=== PATIENT | male | born 1970 | race Hispanic/Latino ===

== ENCOUNTER 2018-03-15 19:14 | Emergency (ER) | payer BC ==
[2018-03-15] MEDS ORDERED: LIDOCAINE 1% W/EPI 1:100,000 MDV 50 ML VIAL ONE (20:05)
[2018-03-15] MEDS ORDERED: TETANUS & DIPHTHERIA TOX,ADULT 0.5 ML VIAL ONE (20:11)
--- NOTE | 2018-03-15 21:03 | ER ---
Nurse's Notes [facility] Name: Maulik Keith Age: 48 yrs Sex: Male : 1970 Arrival Date: 03/15/2018 Time: 19:17 Bed 17 Private MD: Diagnosis: Hand Laceration Presentation: 03/15 19:26 Presenting complaint: Patient states: He was lifting an over with metal flashing into a aj1 truck and it slipped and cut the palm of his right hand. Drsg in place in triage, bleeding controlled. Transition of care: patient was not received from another setting of care. Complicating Factors: There are no complicating factors for this patient. Onset of symptoms was March 15, 2018. Risk Assessment: Do you want to hurt yourself or someone else? Patient reports no desire to harm self or others. Initial Sepsis Screen: Does the patient meet any 2 criteria? HR > 90 bpm. No. Patient's initial sepsis screen is negative. Does the patient have a suspected source of infection? Yes: Skin breakdown/wound. 19:26 Method Of Arrival: Ambulatory aj1 19:26 Acuity: JULIANA 4 aj1 19:50 Care prior to arrival: None. ak1 Triage Assessment: 19:28 General: Appears in no apparent distress. comfortable, Behavior is calm, cooperative, aj1 appropriate for age. Pain: Complains of pain in right hand. Neuro: Level of Consciousness is awake, alert, obeys commands. Cardiovascular: Patient's skin is warm and dry. Respiratory: Airway is patent Respiratory effort is even, unlabored, Respiratory pattern is regular, symmetrical. Injury Description: Laceration sustained to right hand. Historical: - Allergies: 19:28 No Known Allergies; aj1 - Home Meds: 19:28 None [Active]; aj1 - PMHx: 19:28 None; aj1 - PSHx: 19:28 shoulder surgery; aj1 - Immunization history:: Flu vaccine is not up to date. - Social history:: Smoking status: Patient/guardian denies using tobacco. - Ebola Screening: : Patient denies travel to an Ebola-affected area in the 21 days before illness onset. Screenin:47 Abuse screen: Denies threats or abuse. Denies injuries from another. Nutritional ak1 screening: No deficits noted. Tuberculosis screening: No symptoms or risk factors identified. Fall Risk None identified. Assessment: 19:47 General: Appears in no apparent distress. Behavior is calm, cooperative. Neuro: No ak1 deficits noted. Cardiovascular: No deficits noted. Respiratory: No deficits noted. GI: No signs and/or symptoms were reported involving the gastrointestinal system. : No signs and/or symptoms were reported regarding the genitourinary system. EENT: No signs and/or symptoms were reported regarding the EENT system. Derm: laceration to right palm from metal sheet. Musculoskeletal: No signs and/or symptoms reported regarding the musculoskeletal system. Injury Description: Laceration sustained to heel of right hand, palm of right hand and Right first web space is clean, 0.5 to 2.5 cm long, bleeding moderately, is bleeding a small amount. Vital Signs: 19:28 BP 132 / 93; Pulse 91; Resp 20; Temp 98.0(TE); Pulse Ox 97% on R/A; Weight 104.33 kg aj1 (R); Height 5 ft. 9 in. (175.26 cm) (R); Pain 0/10; 19:28 Body Mass Index 33.96 (104.33 kg, 175.26 cm) [facility] ED Course: 19:17 Patient arrived in ED. do 19:28 Triage completed. aj1 19:28 Arm band placed on Patient placed in an exam room. [facility] 19:30 Christofer Segura PA is PHCP. [facility] 19:30 Erick Mayo MD is Attending Physician. [facility] 19:46 Jenni Winters, RN is Primary Nurse. [facility] 19:47 Patient has correct armband on for positive identification. Bed in low position. Call ak1 light in reach. Side rails up X 1. Pulse ox on. NIBP on. 21:05 Assist provider with laceration repair on palm of right hand using sutures. Set up ak1 tray. Patient tolerated well. Patient did not have IV access during this emergency room visit. 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 Exp: ak1 03/05/2020. Lot #: [id number]. } Route: IM; Site: left deltoid; 21:05 Follow up: Response: No adverse reaction ak1 Outcome: 21:03 Discharge ordered by . kassie 21:30 Discharged to home ambulatory, with family. ak1 21:30 Condition: good 21:30 Discharge instructions given to patient, family, Instructed on discharge instructions, follow up and referral plans. wound care, Demonstrated understanding of instructions, follow-up care, wound care. 21:33 Patient left the ED. ak1 Signatures: Alis Masters RN RN aj1 Christofer Segura PA PA jmm Krenek, Amber, RN RN ak1 Zahraa Munoz do
--- NOTE | 2018-03-15 21:03 | EDPHYS ---
Physician Documentation [facility] Name: Maulik Keith Age: 48 yrs Sex: Male : 1970 Arrival Date: 03/15/2018 Time: 19:17 Bed 17 Private MD: ED Physician Erick Mayo HPI: 03/15 19:54 This 48 yrs old Male presents to ER via Ambulatory with complaints of jmm Laceration To Hand. 19:54 The patient has a laceration related to: lifting oven. The laceration(s) is(are) jmm located on the right hand. Onset: The symptoms/episode began/occurred acutely, just prior to arrival. This is a 48/m with no chronic medical conditions that presents to the ED with a laceration to the right hand after lifting a metal oven. The hand was lacerated against a sharp portion of the oven. Denies other injury. Not UTD on tetanus immunization. . Historical: - Allergies: 19:28 No Known Allergies; aj1 - Home Meds: 19:28 None [Active]; aj1 - PMHx: 19:28 None; aj1 - PSHx: 19:28 shoulder surgery; aj1 - Immunization history:: Flu vaccine is not up to date. - Social history:: Smoking status: Patient/guardian denies using tobacco. - Ebola Screening: : Patient denies travel to an Ebola-affected area in the 21 days before illness onset. ROS: 19:54 Constitutional: Negative for fever, chills, and weight loss, Cardiovascular: Negative jmm for chest pain, palpitations, and edema, Respiratory: Negative for shortness of breath, cough, wheezing, and pleuritic chest pain. 19:54 MS/extremity: Positive for laceration. 19:54 Skin: Positive for laceration(s). 19:54 All other systems are negative. Exam: 19:54 Head/Face: atraumatic. Eyes: EOMI, no conjunctival erythema appreciated ENT: Moist jmm Mucus Membranes Neck: Trachea midline, Supple Chest/axilla: Normal chest wall appearance and motion. Cardiovascular: Regular rate and rhythm. No edema appreciated Respiratory: Normal respirations, no respiratory distress appreciated 19:54 Constitutional: The patient appears in no acute distress, alert, awake. 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 19:54 Skin: 5 cm laceration noted to the palm of the right hand. 19:54 Neuro: Orientation: is normal, Mentation: is normal, Memory: is normal, Gait: is steady. 19:54 Psych: Behavior/mood is pleasant, cooperative. Vital Signs: 19:28 BP 132 / 93; Pulse 91; Resp 20; Temp 98.0(TE); Pulse Ox 97% on R/A; Weight 104.33 kg aj1 (R); Height 5 ft. 9 in. (175.26 cm) (R); Pain 0/10; 19:28 Body Mass Index 33.96 (104.33 kg, 175.26 cm) [facility] Procedures: 21:01 Performed This was performed by ENP student. [facility] Laceration: 21:01 Wound Repair of 5cm ( 2.0in ) subcutaneous laceration to palm of right hand. Distal jmm neuro/vascular/tendon intact. Anesthesia: Local anesthetic administered with 10 mls of 1% lidocaine. Wound prep: Simple cleansing with betadine. Skin closed with 11 4-0 Prolene using simple sutures and sterile technique. Patient tolerated well. MDM: 19:54 Patient medically screened. [facility] 19:54 Data reviewed: vital signs, nurses notes. Counseling: I had a detailed discussion with kassie the patient and/or guardian regarding: the historical points, exam findings, and any diagnostic results supporting the discharge/admit diagnosis, the need for outpatient follow up, to return to the emergency department if symptoms worsen or persist or if there are any questions or concerns that arise at home. 21:02 ED course: Patient is NVI, given wound infection return precautions. Family understood [facility] and agree with the plan of care. . 03/15 21:05 Order name: Suture Tray Setup; Complete Time: 21:05 ak1 Administered Medications: 20:01 Drug: Lidocaine (1 %) 20 ml {Note: placed at bedside for ERP use.} Volume: 20 ml; ak1 Route: Infiltration; 20:13 Drug: Tetanus-Diphtheria Toxoid Adult 0.5 ml {R D Manager: [employer]. Exp: ak1 03/05/2020. Lot #: [id number]. } Route: IM; Site: left deltoid; 21:05 Follow up: Response: No adverse reaction ak1 Disposition: 23:20 Co-signature as Attending Physician, Erick Mayo MD I agree with the assessment and tw4 plan of care. Attestation: The patient's history, exam findings, diagnostics, and a summary of any interventions or procedures was reviewed in detail with Christofer ALMENDAREZ. Disposition: 03/15/18 21:03 Discharged to Home. Impression: Hand Laceration. - Condition is Stable. - Discharge Instructions: Laceration Care, Adult. - Medication Reconciliation Form, Thank You Letter, Antibiotic Education, Prescription Opioid Use, Work release form form. - Follow up: Private Physician; When: 1 week; Reason: Recheck today's complaints, Continuance of care, Staple/Suture removal, Re-evaluation by your physician. Signatures: Alis Masters RN RN Christofer Slater PA PA jmm Krenek, Amber RN RN ak1 Erick Mayo MD MD tw4 Corrections: (The following items were deleted from the chart) 21:33 21:03 03/15/2018 21:03 Discharged to Home. Impression: Hand Laceration. Condition is ak1 Stable. Forms are Medication Reconciliation Form, Thank You Letter, Antibiotic Education, Prescription Opioid Use. Follow up: Private Physician; When: 1 week; Reason: Recheck today's complaints, Continuance of care, Staple/Suture removal, Re-evaluation by your physician. kassie
== END 2018-03-15 21:33 | disposition home or self-care (01) ==
LOC: ER 19:14
PROC: 0JQJ0ZZ Repair Right Hand Subcutaneous Tissue and Fascia, Open Approach (ICD-10-PCS; principal; 2018-03-15)
DX: S61.411A Laceration without foreign body of right hand, initial encounter (principal); W26.8XXA Contact with other sharp object(s), not elsewhere classified, initial encounter; Y93.89 Activity, other specified; Y92.9 Unspecified place or not applicable; Z23 Encounter for immunization
CPT/HCPCS: 90714; 99283